=== PATIENT | male | born 1950 | race Caucasian/White ===

== ENCOUNTER → 2023-06-27 09:39 | Outpatient (BNVA) | payer MEDICARE, BC, SELFPAY | PROVIDERS: PCP Family Medicine; Referring Provider Family Medicine; Visit Provider Student in an Organized Health Care Education/Training Program | DX: R05.3 Chronic cough (principal) | CPT/HCPCS: 99205 ==

== ENCOUNTER → 2023-07-05 02:20 | Outpatient (CLI) | payer MEDICARE, BC, SELFPAY ==
--- NOTE | 2023-07-05 11:45 | DI.CT_ITS ---
Exam(s) CT CHEST WO EXAM: CT CHEST WO CLINICAL HISTORY: concern for bronchiectasis,COUGH, R05.9. TECHNIQUE: Multi planar reconstructions were performed. CONTRAST MATERIAL: None COMPARISON: No prior chest x-rays or CT scans for comparison. FINDINGS: CHEST: LUNGS: There are no pulmonary infiltrates nor pleural effusions. There are no findings in the trache a and mainstem bronchi and there is no significant bronchiectasis (as per request). In the right lung there is a 6 millimeter fissure based nodule in the superior segment of the right l ower lobe abutting the uppermost aspect of the major fissure. Below this level there is another nodu le in the right lower lobe measuring 6-7 mm. In the left lung there is a 6 millimeter pleural-based nodule posteriorly in the left lower lobe and another slightly smaller pleural base nodule laterally in the left lower lobe and below this there is another pleural-based 3 millimeter nodule in the lateral basal segment of the left lower lobe. There are no pleural effusions. MEDIASTINUM: There is no obvious hilar nor mediastinal adenopathy. Visualized thyroid unremarkable.No obvious axillary adenopathy CARDIAC: Heart size is normal. There is no pericardial effusion.Caliber of the thoracic aorta is wit hin normal limits. VISUALIZED UPPER ABDOMEN:No adrenal masses. OSSEOUS: No significant osseous lesions.. IMPRESSION: 1. No evidence of fusiform or saccular bronchiectasis (as per request). No infiltrates nor pleural e ffusions. 2. Small bilateral pulmonary nodules as described individually above. Largest of these noncalcified nodules measures 7 mm. Four low risk individual recommend repeat CT scan at 3-6 months, then conside r CT scan at 18-24 months. For higher risk individuals consider repeat CT scan at 3-6 months, then a t 18-24 months. Reference: Fleischner society 2017 guidelines for Management of incidental Pulmonary nodules detected on CT scan images, [place] at all. RADIATION DOSE DELIVERED: Total DLP DATA REPOSITORY: All CT scans at this facility are submitted to the National Radiology Data Registry (NRDR) Dose Index Registry (DIR) with the [employer] ([employer]). RADIATION OPTIMIZATION: All CT scans at this facility use at least one of these dose optimization te chniques: automated exposure control; mA and/or kV adjustment per patient size (includes targeted exa ms where dose is matched to clinical indication); or iterative reconstruction.
== END ==
PROVIDERS: PCP Family Medicine; Visit Provider Student in an Organized Health Care Education/Training Program
DX: R05.9 Cough, unspecified (principal); R91.8 Other nonspecific abnormal finding of lung field
CPT/HCPCS: 71250; 94060; 94726; 94729

== ENCOUNTER 2023-07-05 04:45 | Outpatient (CLI) | payer MEDICARE, BC, SELFPAY ==
[2023-07-05] MEDS: Levalbuterol HFA 15 GM INH 4 PUFF IH (11:42)
[2023-07-05] MEDS: Inhaler, Assist Device 1 EACH MC (11:42)
--- NOTE | 2023-07-05 12:55 | W.PFT ---
Date of service: 07/05/23 Time of Service: 09:55 Pulmonary Function Test Result Indications: Cough Interpretation Spirometry: There is mild airflow limitation. There is a significant bronchodilator response. Patient refused methacholine testing. Lung Volumes: Normal lung volumes Diffusion Capacity: Normal diffusion Airway Pressure: Normal airways resistance Impression Mild airflow limitation with a significant bronchodilator response. This may be consistent with asthma in the correct clinical context. Clinical Correlation therefore is recommended.
== END 2023-07-05 04:46 | disposition home or self-care (01) ==
LOC: RT 04:45
PROVIDERS: PCP Family Medicine; Visit Provider Student in an Organized Health Care Education/Training Program
DX: R05.9 Cough, unspecified (principal); R94.2 Abnormal results of pulmonary function studies
CPT/HCPCS: 94060; 94726; 94729

== ENCOUNTER → 2023-09-22 08:57 | Outpatient (BNVA) | payer MEDICARE, BC, SELFPAY | PROVIDERS: PCP Family Medicine; Referring Provider Family Medicine; Visit Provider Physician Assistant Surgical | DX: G47.33 Obstructive sleep apnea (adult) (pediatric) (principal); J45.909 Unspecified asthma, uncomplicated; R91.8 Other nonspecific abnormal finding of lung field | CPT/HCPCS: 99214 ==